=== PATIENT | female | born 1990 | race Caucasian/White ===

== ENCOUNTER 2018-05-06 10:58 | Emergency (ER) | payer MEDICAID ==
--- NOTE | 2018-05-06 11:22 | EDPHY ---
H & P Stated Complaint: dysuria x 3 days-taking azo - Personal History LMP (Females 10-55): IUD In Place - Medical/Surgical History Hx Asthma: No Hx Chronic Respiratory Disease: No Hx Diabetes: No Hx Cardiac Disease: No Hx Renal Disease: No Hx Cirrhosis: No Hx Alcoholism: No Hx HIV/AIDS: No Hx Splenectomy or Spleen Trauma: No Other PMH: denies - Social History Smoking Status: Never smoked Time Seen by Provider: 05/06/18 11:08 HPI/ROS: CHIEF COMPLAINT: "I think I have UTI" HISTORY OF PRESENT ILLNESS: 27-year-old immunocompetent female complaining 3 days of dysuria. He has been taking [id number] azo. No back or flank pain. No fever or chills. No chest pain. No abdominal pain no nausea or vomiting. PRIMARY CARE PROVIDER: REVIEW OF SYSTEMS: 10 systems reviewed and negative with the exception of the elements mentioned in the history of present illness PAST MEDICAL & SURGICAL HISTORY: No history of chronic renal disorder SOCIAL HISTORY: Nonsmoker PHYSICAL EXAM (Prior to examination, patient consented to physical exam, hands were washed and my usual and customary physical exam procedures followed) 1) GENERAL: Well-developed, well-nourished, alert and oriented. Appears to be in no acute distress. 2) HEAD: Normocephalic, atraumatic 3) HEENT: Pupils equal, round, reactive to light bilaterally. Sclera anicteric. Nasopharynx, oropharynx, clear, no lesions. MoistDry mucous membranes. Ears bilaterally with normal tympanic membranes. 4) NECK: Full range of motion, no meningeal signs. 5) LUNGS: Clear auscultation bilaterally, no wheezes, no rhonchi, no retractions. 6) HEART: Regular rate and rhythm, no murmur, no heave, no gallop. 7) ABDOMEN: No guarding, no rebound, no focal tenderness, negative McBurney's, negative Christensen's, negative Rovsing's, negative peritoneal sign, 8) MUSCULOSKELETAL: Moving all extremities, no focal areas of tenderness, no obvious trauma. No peripheral edema or discoloration. 9) BACK: No CVA tenderness, no midline vertebral tenderness, no fluctuance, no step-off, no obvious trauma, no visual or palpable abnormality. 10) SKIN: No rash, no petechiae. 11) Psychiatric: Patient is oriented X 3, there is no agitation. DIFFERENTIAL DIAGNOSIS: In no particular order including but not limited to cystitis, pyelonephritis, nephrolithiasis (Estefania Ulloa) Constitutional: Initial Vital Signs Temperature (C) 36.4 C 05/06/18 11:01 Heart Rate 82 05/06/18 11:01 Respiratory Rate 16 05/06/18 11:01 Blood Pressure 111/89 H 05/06/18 11:01 O2 Sat (%) 97 05/06/18 11:01 O2 Delivery Mode Room Air Allergies/Adverse Reactions: No Known Allergies Allergy (Unverified 05/06/18 11:00) Home Medications: Medication Instructions Recorded Cephalexin [Keflex] 500 mg PO TID 7 Days cap 05/06/18 Fluconazole [Diflucan (*)] 150 mg PO ONCE #0 tab 05/06/18 Phenazopyridine HCl [Pyridium] 200 mg PO PC #10 tab 05/06/18 Medical Decision Making ED Course/Re-evaluation: 11:57 a.m.: The urine analysis on this patient was not performed by laboratory due to the orange coloration, likely secondary to the azo the patient has been consuming. She is noted to have pyuria and clinical symptoms of urinary tract infection. Her urine will be cultured. She will be started on Keflex and Pyridium. Doubt pyelonephritis. I feel the patient can be treated on an outpatient basis as I believe her to be a competent a decision-maker, shows no signs of urosepsis, afebrile, no comorbid medical conditions. Nonetheless, I have provided acute urinary tract infection red flag signs and symptoms precautions, and reasons to return to the emergency department. The patient understands that this diagnosis is provisional and can never be 100% accurate. Usual and customary warnings were given concerning the clinical impression and all the patient's questions were answered. The patient was instructed to return to the emergency department should her symptoms worsen or return, or develop any new symptoms, otherwise to followup as directed in discharge instructions. Care of patient under supervision of secondary supervising physician Dr Moss (Estefania Ulloa) I did not see this patient while she was in the emergency department. However her care was discussed with the PA while the patient was in the department. I agree with treatment plan and management (Mckinley Moss) Departure - Departure Disposition: Home, Routine, Self-Care Clinical Impression: Urinary tract infection Condition: Good Instructions: Urinary Tract Infection in Women (ED) Additional Instructions: Return to the ER immediately if you experience fevers/chills, flu like symptoms , inability to tolerate oral intake, nausea or vomiting, or any other symptoms that concern you. Referrals: Jeanine Pope MD [Medical Doctor] - 2-3 days, if not improved Prescriptions: Cephalexin [Keflex] 500 mg PO TID 7 Days cap Fluconazole [Diflucan (*)] 150 mg PO ONCE #0 tab Phenazopyridine HCl [Pyridium] 200 mg PO PC #10 tab
[2018-05-06 12:30] VITALS: BP 98/72
== END 2018-05-06 12:30 | disposition home or self-care (01) ==
DX: N39.0 Urinary tract infection, site not specified (principal)

== ENCOUNTER 2018-05-27 12:06 | Emergency (ER) | payer MEDICAID ==
--- NOTE | 2018-05-27 14:02 | EDPHY ---
General - History Smoking Status: Never smoked Time Seen by Provider: 05/27/18 12:54 Narrative: CLINICAL IMPRESSION: Pelvic pain ASSESSMENT/PLAN: 27-year-old female presents to the emergency department with relatively acute onset right lower quadrant pelvic pain at 10:00 a.m. This morning that lasted for 2 hr and has since abated. On exam, patient has no focal peritoneal findings, guarding, rigidity or distention. Vital signs stable. No associated vomiting, fever, chills, or anorexia. Low clinical suspicion for acute appendicitis. Pelvic ultrasound shows no evidence of ovarian torsion, ovarian cyst, salpingitis, TOA. Urine studies negative for UTI and pyelo, test negative. Patient has no complaints of abnormal vaginal discharge and reports no risk of STDs. She has no associated flank pain. She is on her menses. No history of kidney stones. During her entire stay in the ED she did not require IV or oral analgesics and reported her pain is significantly improved. She was given a referral to OBGYN as she wishes to have her copper IUD removed. Supportive care discussed, warning signs return to ED sooner alignment discharge. DIFFERENTIAL DX: Abdominal pain includes but not limited to urinary tract infection, pyelonephritis, infection, ectopic , salpingitis, TOA, ovarian torsion, ovarian cyst, endometriosis, uterine fibroids, acute appendicitis, acute diverticulitis, small-bowel obstruction, constipation ED PROCEDURES: See lab and/or imaging results below ED COURSE: Urine shows no sign of infection, negative . Pelvic and RLQ US ordered 3:10p.m. Ultrasound read by Radiology showing normal placement of the IUD, no ovarian torsion, cyst. Appendix not visualized. Results discussed with patient. Repeat abdominal exam shows no focal peritoneal findings. Patient reporting she is nearly pain-free at this time. CHIEF COMPLAINT: Pelvic cramping, nausea, diarrhea HPI: 27-year-old otherwise healthy female presents to the emergency department with relatively sudden onset right lower quadrant pelvic cramping associated with nausea and diarrhea that began at 10:00 a.m. This morning and lasted until noon. Patient reports is felt as though "something was stabbing her in the abdomen". She took naproxen. This did not alleviate her pain and so she came to the ED. She is currently on her menses. She has a copper IUD in place and has had this for over a year. She reports some problems with chronic cramping with the IUD for the for 7 months. It has been managed with ibuprofen. No prior history of ovarian cysts, endometriosis, fibroids, and no concerns for STDs, vaginal infection or UTI. She was treated for UTI by our emergency department approximately 2 weeks ago. She denies risk of . No associated fever, chills, vomiting, flank pain. PAST MEDICAL HISTORY: None reported See nurse/triage notes for additional history if applicable Pertinent Past Surgical History: None reported Family History: Noncontributory Social History: Otherwise healthy REVIEW OF SYSTEMS: All other systems negative Constitutional: No fever, no chills, appetite change. Cardiovascular: No chest pain, no palpitations. Respiratory: No cough, no shortness of breath. Gastrointestinal: Positive for abdominal pain, no vomiting, positive for diarrhea. Genitourinary: No hematuria, dysuria, flank pain, positive for pelvic pain Musculoskeletal: No back pain, joint swelling, joint pain, myalgias. Skin: No rashes, color change. PHYSICAL EXAM: General Appearance: Alert, oriented, appropriate, cooperative, NAD, well hydrated, non-toxic appearing, VSS, no hypoxia, does not appear in significant distress. Respiratory: There are no retractions, lungs are clear to auscultation. Cardiac: Regular rate and rhythm, no murmurs or gallops. Gastrointestinal: Abdomen is soft, mild RLQ tenderness, bowel sounds normal, no masses/hernia, no rigidity, guarding or focal peritoneal findings. Skin: Warm, dry, no rashes, no nodules on palpation. Musculoskeletal: Extremities are symmetrical, full range of motion, no tenderness, deformity, swelling, or erythema. No right flank pain MEDICAL DECISION MAKING: Patient was seen independently. Secondary supervising physician at time of evaluation was Dr. Moss. Diagnosis: Right lower quadrant pelvic pain. New, requires workup Summary: See Assessment and Plan for summary of ED visit Clinical lab tests: ordered / reviewed. Independent visualization of images, tracing, or specimens: Yes. Decision to obtain medical records or history from someone other than the patient: No Review / Summarize previous medical records: None available Discussed patient with another provider: Dr. Moss Patient Progress: Improved, stable for discharge. (Uzair Kearney) Medical Decision Making: I did not see this patient while she was in the emergency department. However her care was discussed with the PA while the patient was in the department. I agree with treatment plan and management (Mckinley Moss) - Diagnostics Imaging Results: Imaging Impressions Abdomen Ultrasound 05/27/18 14:01 Impression: 1. Unremarkable pelvic ultrasound which demonstrates customary position of an IUD. 2. Nonvisualization of the appendix without secondary ultrasound findings of acute appendicitis. Recommend correlation. Findings and recommendations discussed with Dr. Moss at 1502 hour, 05/27/2018. Pelvic/Renal Ultrasound 05/27/18 14:01 Impression: 1. Unremarkable pelvic ultrasound which demonstrates customary position of an IUD. 2. Nonvisualization of the appendix without secondary ultrasound findings of acute appendicitis. Recommend correlation. Findings and recommendations discussed with Dr. Moss at 1502 hour, 05/27/2018. - Objective Vital Signs: Initial Vital Signs Temperature (C) 36.4 C 05/27/18 12:14 Heart Rate 61 05/27/18 12:14 Respiratory Rate 16 05/27/18 12:14 Blood Pressure 110/66 05/27/18 12:14 O2 Sat (%) 99 05/27/18 12:14 O2 Delivery Mode Room Air Allergies/Adverse Reactions: No Known Allergies Allergy (Verified 05/27/18 12:13) Home Medications: Medication Instructions Recorded Paraguard 05/27/18 Laboratory Results: 05/27/18 05/27/18 12:20 12:20 Urine Color YELLOW Urine Appearance TURBID Urine pH 5.0 (5.0-7.5) Ur Specific Barnard 1.031 H (1.002-1.030) Urine Protein NEGATIVE (NEGATIVE) Urine Ketones NEGATIVE (NEGATIVE) Urine Blood NEGATIVE (NEGATIVE) Urine Nitrate NEGATIVE (NEGATIVE) Urine Bilirubin NEGATIVE (NEGATIVE) Urine Urobilinogen NEGATIVE EU EU (0.2-1.0) Ur Leukocyte Esterase NEGATIVE (NEGATIVE) Urine RBC 10-15 /hpf H /hpf (0-3) Urine WBC 0-1 /hpf /hpf (0-3) Ur Epithelial Cells TRACE /lpf /lpf (NONE-1+) Urine Mucus 1+ /lpf /lpf (NONE-1+) Urine Glucose NEGATIVE (NEGATIVE) Urine Test NEGATIVE Departure - Departure Disposition: Home, Routine, Self-Care Clinical Impression: Pelvic cramping Condition: Good Instructions: Pelvic Pain (ED) Additional Instructions: DISCHARGE INSTRUCTIONS FROM YOUR DOCTOR Thank you for visiting our emergency department today. You were treated by a physician assistant laboratory director today and your case was reviewed with our ED Attending physician. Please keep in mind that discharge from the emergency department does not mean that there is nothing wrong - it simply means that we have not identified an emergency condition that requires further evaluation or treatment in the hospital. You should always plan to follow up with primary care for re- evaluation of your condition in the next 2-3 days. If you have been referred to a specialist, please call as soon as possible (today or tomorrow) to schedule your follow up appointment at the appropriate time. PELVIC ULTRASOUND WAS READ BY THE A RADIOLOGIST NEGATIVE, IUD IS IN PLACE, NO SIGNS OF OVARIAN CYST OR TORSION. A REFERRAL TO A LOCAL OBGYN WAS PROVIDED. PLEASE MONITOR SYMPTOMS CLOSELY. RETURN TO THE EMERGENCY DEPARTMENT FOR WORSENING PERSISTENT OR PAIN, NAUSEA, VOMITING, FEVER, CHILLS, OR ANY OTHER CONCERNS. YOU DO NOT HAVE SIGNS OF URINARY TRACT INFECTION TODAY. People present with illnesses and injuries in different ways, and it is always possible that we have missed something. You may always return for re-evaluation if symptoms worsen or if they are not improving or if you develop new/different symptoms. Again, thank you for choosing our emergency department. We hope that you feel better. Referrals: NONE *PRIMARY CARE P,. [Primary Care Provider] - As per Instructions Alyssa Mai MD [Medical Doctor] - 2-3 days, call for appt.
[2018-05-27 15:40] VITALS: BP 119/85
== END 2018-05-27 15:40 | disposition home or self-care (01) ==
DX: R10.2 Pelvic and perineal pain (principal); R11.0 Nausea; R19.7 Diarrhea, unspecified